=== PATIENT | male | born 1965 | race Caucasian/White ===

== ENCOUNTER 2017-03-19 12:38 | Emergency (ER) | payer OTHER ==
[2017-03-19] MEDS ORDERED: methylPREDNISolone SOD SUCCI 125 MG/2 ML VIAL IM STA (13:07)
[2017-03-19] MEDS ORDERED: KETOROLAC 60 MG/2 ML VIAL IM STA (13:07)
--- NOTE | 2017-03-19 13:47 | ED ---
General Adult HPI - General Chief complaint: Back Pain/Injury Stated complaint: Back/Hip/Leg Pain Time Seen by Provider: 03/19/17 12:48 Source: patient, RN notes reviewed Mode of arrival: wheelchair Limitations: no limitations - History of Present Illness Initial comments: Patient's a 52-year-old male significant past medical history for chronic low back pain, who presents emergency room today with a chief complaint of increased pain to the right hip. Patient does admit that he has a ladder in his house when down to his basement. He states he was going up and down multiple times a few days ago. States that 2 days ago and having some irritation to the right hip. States it's worse with certain movements. He states he feels pain in the right groin area times radiates down the leg. Patient states feels different than his chronic back pain. He states he did go to [facility] yesterday and had x-rays obtained. States he was given Valium and [place] for his pain. He states several relief. Patient mitts that the pain is worse with movements of the right hip. He denies any other complaints. Denies Bowel bladder incontinence retention. Denies any saddle anesthesia. Patient denies any recent fever, chills, shortness of breath, chest pain, abdominal pain, nausea or vomiting, dysuria or hematuria, constipation or diarrhea, headaches or visual changes, or any other complaints. - Related Data Home Medications Medication Instructions Recorded Confirmed Atenolol [Tenormin] 25 mg PO DAILY 06/05/15 03/19/17 Ibuprofen [Motrin] 600 mg PO Q6H PRN 06/05/15 03/19/17 Diazepam [Diazepam] 5 mg PO HS 10/05/15 03/19/17 Hydrocodone/Acetaminophen 1 tab PO Q6H PRN 10/05/15 03/19/17 [Hydrocodon-Acetaminophen 5-325] Previous Rx's Medication Instructions Recorded Dexamethasone 0.75 mg PO DIRECTED #12 tablet 03/19/17 Allergies Allergy/AdvReac Type Severity Reaction Status Date / Time codeine Allergy Rash/Hives Verified 03/19/17 13:10 Penicillins Allergy Rash/Hives Verified 03/19/17 13:10 venom-honey bee Allergy Swelling Verified 03/19/17 13:10 [bee venom (honey bee)] Review of Systems ROS Statement: Those systems with pertinent positive or pertinent negative responses have been documented in the HPI. ROS Other: All systems not noted in ROS Statement are negative. Past Medical History Past Medical History: Atrial Fibrillation Additional Past Medical History / Comment(s): Chronic back pain with radiation down bilateral legs at times. History of arrhythmia and atrial fibrillation and has a cardiac pacemaker different later intact History of Any Multi-Drug Resistant Organisms: None Reported Past Surgical History: Back Surgery, EPS, Pacemaker Additional Past Surgical History / Comment(s): Cervical and lumbar fusions, pericardial window 06/2007, permanent pacer placement 1994, permanent pacer pocket revision 2004, replacement permanent pacer 01/2015, pain clinic procedures for back pain (injections), L hand surgery with pin in little finger. Past Anesthesia/Blood Transfusion Reactions: Motion Sickness Type of Cardiac Device: Permanent Pacemaker Device Placement Date:: 1994-[facility] [place] JAN 2015- [employer] Past Psychological History: No Psychological Hx Reported Smoking Status: Current every day smoker Past Alcohol Use History: Occasional Past Drug Use History: None Reported - Past Family History Father Family Medical History: Coronary Artery Disease (CAD) Additional Family Medical History / Comment(s): Father has had CABG twice, stents and a pacer. Mother Family Medical History: No Reported History General Exam - General Exam Comments Initial Comments: General: The patient is awake and alert, in no distress, and does not appear acutely ill. Eye: Pupils are equal, round and reactive to light, extra-ocular movements are intact. No nystagmus. There is normal conjunctiva bilaterally. No signs of icterus. Ears, nose, mouth and throat: There are moist mucous membranes and no oral lesions. Neck: The neck is supple, there is no tenderness or JVD. Cardiovascular: There is a regular rate and rhythm. No murmur, rub or gallop is appreciated. Respiratory: Lungs are clear to auscultation, respirations are non-labored, breath sounds are equal. No wheezes, stridor, rales, or rhonchi. Gastrointestinal: Soft, non-distended, non-tender abdomen without masses or organomegaly noted. There is no rebound or guarding present. No CVA tenderness. Musculoskeletal: Patient has normal appearance of thoracic lumbar spine with no step-off deformity. There is no tenderness midline. Patient does have a normal appearance the right hip. Shows limited range of motion due to pain. Does have tenderness with a logroll maneuver. Tender on palpation to the heel aspect of the right hip. Sensation intact. Pulses equal bilaterally 2+. Neurological: A&O x 3. CN II-XII intact, There are no obvious motor or sensory deficits. Coordination appears grossly intact. Speech is normal. Skin: Skin is warm and dry and no rashes or lesions are noted. Psychiatric: Cooperative, appropriate mood & affect, normal judgment. Limitations: no limitations Course Vital Signs 03/19/17 12:43 Temperature 96.9 F L Pulse Rate 66 Respiratory 18 Rate Blood Pressure 131/73 O2 Sat by Pulse 100 Oximetry Medical Decision Making - Medical Decision Making Patient reexamined at this time shows no signs of distress. He doesn't feeling better here in emergency room after pain medication. Patient did have x-rays obtained yesterday at [facility]. At this time is no reason to repeat as was no injury or trauma. Patient does have pain right hip area worse with a long maneuver. Does have a history of chronic low back pain. Has seen Dr. Oates in the past but is advised follow-up with orthopedics tomorrow. Continue with pain medication will be given prescription for steroids for inflammation. Advised return if any symptoms increase worsen or for any other concerns. Disposition Clinical Impression: Right hip pain Disposition: HOME SELF-CARE Condition: Good Instructions: Hip Pain (ED) Additional Instructions: Please use medication as discussed. Please follow-up with orthopedics in the next 2 days. Please return to emergency room if the symptoms increase or worsen or for any other concerns. Prescriptions: Dexamethasone 0.75 mg PO DIRECTED #12 tablet Referrals: Fabrice Hernández DO [Primary Care Provider] - 1-2 days Baljit Oates DO [Doctor of Osteopathic Medicine] - 1-2 days Time of Disposition: 14:06
[2017-03-19] MEDS ORDERED: HYDROmorphone 2 MG/ML 1 ML SYRINGE IM STA (14:04)
[2017-03-19 14:21] VITALS: BP 127/76; PULSE 89; RESP 14; TEMP 97.9
== END 2017-03-19 14:34 | disposition home or self-care (01) ==
LOC: EC 12:38
DX: M25.551 Pain in right hip (principal); M54.5 Low back pain; G89.29 Other chronic pain; F17.200 Nicotine dependence, unspecified, uncomplicated; Z98.1 Arthrodesis status; Z88.5 Allergy status to narcotic agent; Z88.0 Allergy status to penicillin; Z91.030 Bee allergy status; Z79.899 Other long term (current) drug therapy; X50.1XXA Overexertion from prolonged static or awkward postures, initial encounter; Y92.009 Unspecified place in unspecified non-institutional (private) residence as the place of occurrence of the external cause
CPT/HCPCS: 99283; 96372 ×3; J1170; J2930; J1885

== ENCOUNTER → 2017-04-27 | Outpatient (CLI) | payer OTHER ==
[2017-04-27 08:58] LABS: HCT 44.2 % (39.0-53.0); HGB 14.5 gm/dL (13.0-17.5); MCH 31.2 pg (25.0-35.0); MCHC 32.8 g/dL (31.0-37.0); MCV 95.1 fL (80.0-100.0); Mean Platelet Volume 7.9; Platelet Count 136 k/uL (150-450); RBC 4.65 m/uL (4.30-5.90); RDW 12.6 % (11.5-15.5); WBC 3.2 k/uL (3.8-10.6)
[2017-04-27 09:17] LABS: ALT 22 U/L (21-72); AST 19 U/L (17-59); Albumin 4.4 g/dL (3.5-5.0); Alkaline Phosphatase 50 U/L (38-126); Anion Gap 9 mmol/L; Blood Urea Nitrogen 15 mg/dL (9-20); Calcium 9.5 mg/dL (8.4-10.2); Carbon Dioxide 31 mmol/L (22-30); Chloride 100 mmol/L (98-107); Cholesterol 185 mg/dL (<200); Glucose 101 mg/dL (74-99); HDL Cholesterol 81 mg/dL (40-60); LDL Cholesterol,Calculated 89 mg/dL (0-99); Potassium 4.3 mmol/L (3.5-5.1); Sodium 140 mmol/L (137-145); Total Bilirubin 1.3 mg/dL (0.2-1.3); Total Protein 6.9 g/dL (6.3-8.2); Triglycerides 76 mg/dL (<150)
[2017-04-27 09:25] LABS: Appearance,Urine Clear (Clear); Bilirubin,Urine Negative (Negative); Blood,Urine Negative (Negative); Color,Urine Light Yellow; Glucose,Urine (UA) Negative (Negative); Ketones,Urine Negative (Negative); Leukocyte Esterase,Urine Negative (Negative); Nitrite,Urine Negative (Negative); PH, Urine 7.5 (5.0-8.0); Protein,Urine Negative (Negative); Specific Gravity,Urine 1.002 (1.001-1.035); Urobilinogen,Urine <2.0 mg/dL (<2.0)
[2017-04-27 10:23] LABS: Prostate Specific Antigen 0.32 ng/mL (0.00-4.00)
[2017-04-27 20:43] LABS: Hemoglobin A1C 5.1 % (4.0-6.0)
== END | disposition home or self-care (01) ==
LOC: LABWHC1 08:35
PROVIDERS: ATTEND Family Medicine
DX: Z00.00 Encounter for general adult medical examination without abnormal findings (principal)
CPT/HCPCS: 36415; 80053; 80061; 81003; 83036; 84153; 84443; 85027; 86803

== ENCOUNTER → 2017-05-04 | Outpatient (CLI) | payer OTHER ==
[2017-05-04 09:13] LABS: Basophils % (A) 1 %; Eosinophils # (A) 0.1 k/uL (0-0.7); Eosinophils % (A) 3 %; HCT 42.1 % (39.0-53.0); HGB 13.7 gm/dL (13.0-17.5); Lymphocytes % (A) 31 %; MCH 29.2 pg (25.0-35.0); MCHC 32.5 g/dL (31.0-37.0); Mean Platelet Volume 8.1; Monocytes # (A) 0.3 k/uL (0-1.0); Monocytes % (A) 10 %; Neutrophils # (A) 1.7 k/uL (1.3-7.7); Neutrophils % (A) 51 %; Platelet Count 162 k/uL (150-450); RBC 4.68 m/uL (4.30-5.90); RDW 12.5 % (11.5-15.5); WBC 3.3 k/uL (3.8-10.6)
[2017-05-04 09:48] LABS: MCV 89.8 fL (80.0-100.0)
== END | disposition home or self-care (01) ==
LOC: LABWHC1 08:28
PROVIDERS: ATTEND Family Medicine
DX: R89.9 Unspecified abnormal finding in specimens from other organs, systems and tissues (principal)
CPT/HCPCS: 36415; 85025

== ENCOUNTER → 2017-05-10 | Outpatient (CLI) | payer OTHER ==
[2017-05-10 14:56] LABS: Basophils % (A) 1 %; Eosinophils # (A) 0.1 k/uL (0-0.7); Eosinophils % (A) 2 %; HCT 41.4 % (39.0-53.0); HGB 14.5 gm/dL (13.0-17.5); Lymphocytes % (A) 27 %; MCH 31.1 pg (25.0-35.0); MCV 88.9 fL (80.0-100.0); Mean Platelet Volume 7.9; Monocytes # (A) 0.3 k/uL (0-1.0); Monocytes % (A) 7 %; Neutrophils # (A) 2.4 k/uL (1.3-7.7); Neutrophils % (A) 61 %; Platelet Count 169 k/uL (150-450); RBC 4.66 m/uL (4.30-5.90); RDW 12.6 % (11.5-15.5); WBC 3.9 k/uL (3.8-10.6)
== END | disposition home or self-care (01) ==
LOC: LABWHC1 14:17
PROVIDERS: ATTEND Family Medicine
DX: R89.9 Unspecified abnormal finding in specimens from other organs, systems and tissues (principal)
CPT/HCPCS: 36415; 85025

== ENCOUNTER → 2017-05-16 | Day surgery (SDC) | payer OTHER ==
[2017-05-12 11:28] VITALS: BMI 21.2
[~2017-05-16] MED LIST: LACTATED RINGERS 1,000 ML IV ONE; LACTATED RINGERS 1,000 ML IV SCH; LIDOCAINE 1% 20 ML VIAL (10MG/ML) FOR IV START INTRADERMA PRN; PROPOFOL 10 MG/ML 20 ML VIAL IV ONE
[2017-05-16 11:25] VITALS: TEMP 97.7
[2017-05-16 12:30] VITALS: RESP 18
--- NOTE | 2017-05-16 12:30 | P.PCN ---
Date of Procedure: 05/16/17 Procedure(s) Performed: Procedure: Total colonoscopy. Preoperative diagnosis: Screening for neoplasia. Postoperative diagnosis: Exam within normal limits. Preparation: HalfLytely prep. Sedation: Was provided by anesthesia. Brief clinical history: The patient is a 52-year-old male who is referred for this evaluation for screening for neoplasia age being his risk factor. He has no family history of colon cancer. The patient has no abdominal complaints, bleeding or anemia. This would be his first colonoscopy. Procedure: With the patient on his left lateral decubitus position and after informed consent and adequate sedation, the perianal area was inspected and it did not show any fissures or fistulas. There were no masses felt on digital rectal examination. The Olympus CFQ 160L video colonoscope was then inserted in the rectum in the usual fashion and advanced to the cecum. The mucosa appeared healthy. No polyps or tumors were seen or any obvious diverticular disease or other pathology. I retroflexed the endoscope in the rectum before the endoscope was withdrawn. The patient tolerated the procedure well. Plan: The patient was reassured. He will follow up with you as planned and I recommended repeat exam in 10 years.
[2017-05-16 12:47] VITALS: BP 122/74; PULSE 72
== END | disposition home or self-care (01) ==
LOC: ORWHC2ENDO 10:47
DX: Z12.11 Encounter for screening for malignant neoplasm of colon (principal); I10 Essential (primary) hypertension; I48.91 Unspecified atrial fibrillation; Z88.0 Allergy status to penicillin; Z91.030 Bee allergy status; Z88.5 Allergy status to narcotic agent; Z79.1 Long term (current) use of non-steroidal anti-inflammatories (NSAID); Z79.899 Other long term (current) drug therapy; Z95.0 Presence of cardiac pacemaker
CPT/HCPCS: G0121; J2704

== ENCOUNTER → 2017-06-05 | Outpatient (CLI) | payer OTHER ==
--- NOTE | 2017-06-06 15:56 | CT ---
EXAMINATION TYPE: CT lumbar spine w con DATE OF EXAM: 06/05/2017 COMPARISON: 12/29/2015 HISTORY: Low back pain. History of lumbar surgeries. CT DLP: 1009 mGycm Automated exposure control for dose reduction was used. CONTRAST: CT scan of the lumbar is performed with IV Contrast, patient injected with 100 mL of Isovue M300. Enhanced CT of the lumbar spine was performed. Bone and soft tissue window settings are submitted as well as coronal and sagittal reconstructions. FINDINGS: The lumbar spine maintains normal vertebral body heights and alignment. Sclerotic lesions o f the iliac bones are unchanged from the prior of 2015 and favored to represent benign etiologies. Tr ansverse processes of the interspinous processes are intact. The patient reports a history of lumbar surgery. No metallic postsurgical hardware is seen. Limited visualized portions of the abdomen are gr ossly unremarkable. L1-L2: Normal disc space height. No disc herniation protrusion or central stenosis. No facet joint arthropathy. No evidence for foraminal encroachment. L2-L3: There is a small broad-based disc bulge resulting in mild bilateral neural foraminal narrowing and mild spinal canal stenosis. Arthropathy is also again seen. L3-L4: There is a right eccentric disc bulge creating at least moderate right neural foraminal narrow ing and mild to moderate left neural foraminal narrowing with moderate spinal canal stenosis. Facet a rthropathy is also again seen at this level. L4-L5: There appears to be interval surgical removal of the previously seen right large paracentral d isc herniation. A broad-based disc bulge remains that is right eccentric resulting in moderate right neural foraminal narrowing and moderate left neural foraminal narrowing in combination with facet art hropathy. There is also moderate spinal canal stenosis at this level. L5-S1: Small broad-based disc bulge is seen resulting in minimal bilateral neural foraminal narrowing . No spinal canal stenosis. IMPRESSION: 1. Apparent surgical removal of the previously seen large right paracentral disc herniation. Based di sc bulge and facet arthropathy remain resulting in bilateral moderate neural foraminal narrowing and moderate spinal canal stenosis. 2. Moderate multilevel degenerative disc disease contributing to mild spinal canal stenosis at L2-L3 and moderate spinal canal stenosis from L3 through L5 with multilevel variable neural foraminal steno sis as described above.
== END | disposition home or self-care (01) ==
LOC: RADCTMAIN 16:16
PROVIDERS: ATTEND Psychiatry & Neurology Neurology
DX: M48.061 Spinal stenosis, lumbar region without neurogenic claudication (principal); M99.73 Connective tissue and disc stenosis of intervertebral foramina of lumbar region; M51.26 Other intervertebral disc displacement, lumbar region; M51.36 Other intervertebral disc degeneration, lumbar region; M46.86 Other specified inflammatory spondylopathies, lumbar region
CPT/HCPCS: 72132; Q9967

== ENCOUNTER 2017-09-25 12:35 | Emergency (ER) | payer OTHER ==
[2017-09-25] MEDS ORDERED: diphenhydrAMINE 50 MG/ML 1 ML VIAL IVP STA (13:18)
[2017-09-25] MEDS ORDERED: SODIUM CHLORIDE 0.9% 1,000 ML IV ONE (13:18)
[2017-09-25] MEDS ORDERED: METOCLOPRAMIDE 5 MG/ML 2 ML VIAL IVP STA (13:18)
--- NOTE | 2017-09-25 13:21 | ED ---
Headache HPI - General Chief Complaint: Headache Stated Complaint: Headache Time Seen by Provider: 09/25/17 13:07 Mode of arrival: ambulatory Limitations: no limitations - History of Present Illness Initial Comments: This is a 52-year-old male with a history of atrial fibrillation currently in sinus rhythm with a pacemaker who presents emergency department for headache for 3 weeks. The patient states that it seems to wax and wane in intensity. It seemed to resolve about one week ago however then returned. He describes it as bifrontal and radiating bilaterally at around to the posterior aspect of his head. He states it does not radiate into his neck. He states that when the headache is at its worst he has some blurred vision. He states that it seems to be made worse when he is bending down. He states it seems to be a little bit improved when he is laying supine. He denies any focal weakness or numbness that is new for him. Denies any significant nausea or vomiting. States that he has not seen his physician for this. He is on 800 Motrin daily for chronic back pain which has not relieved his symptoms. He states that he is on gabapentin as well and had the dose increased 4 months ago however has not had any issues with this medication and his PCP told him that he did not feel that this was the cause. He denies any other acute complaints. - Related Data Home Medications Medication Instructions Recorded Confirmed Gabapentin [Neurontin] 300 mg PO HS 09/25/17 09/25/17 HYDROcodone/APAP 7.5-325MG [[place]us 0.5 - 2 tab PO BID PRN 09/25/17 09/25/17 7.5-325] Ibuprofen [Motrin] 800 mg PO Q8H PRN 09/25/17 09/25/17 Previous Rx's Medication Instructions Recorded Butalb/Acetaminophen/Caffeine 1 - 2 cap PO Q4HR PRN #10 cap 09/25/17 [Fioricet 50-300-40 mg Capsule] Allergies Allergy/AdvReac Type Severity Reaction Status Date / Time codeine Allergy Rash/Hives Verified 09/25/17 12:57 Penicillins Allergy Rash/Hives Verified 09/25/17 12:57 venom-honey bee Allergy Swelling Verified 09/25/17 12:57 [bee venom (honey bee)] Review of Systems ROS Statement: Those systems with pertinent positive or pertinent negative responses have been documented in the HPI. ROS Other: All systems not noted in ROS Statement are negative. Past Medical History Past Medical History: Atrial Fibrillation Additional Past Medical History / Comment(s): Chronic back pain with radiation down bilateral legs at times. History of arrhythmia and atrial fibrillation and has a cardiac pacemaker different later intact History of Any Multi-Drug Resistant Organisms: None Reported Past Surgical History: Back Surgery, EPS, Pacemaker Additional Past Surgical History / Comment(s): Cervical and lumbar fusions, pericardial window 06/2007, permanent pacer placement 1994, permanent pacer pocket revision 2004, replacement permanent pacer 01/2015, pain clinic procedures for back pain (injections), L hand surgery with pin in little finger. Past Anesthesia/Blood Transfusion Reactions: Motion Sickness Type of Cardiac Device: Permanent Pacemaker Device Placement Date:: 1994-[facility] IN JAN 2015- [employer] Past Psychological History: No Psychological Hx Reported Smoking Status: Current every day smoker Past Alcohol Use History: Occasional Past Drug Use History: None Reported - Past Family History Father Family Medical History: Coronary Artery Disease (CAD) Additional Family Medical History / Comment(s): Father has had CABG twice, stents and a pacer. Mother Family Medical History: No Reported History General Exam - General Exam Comments Initial Comments: Constitutional: Awake alert Appears comfortable Head: Normocephalic atraumatic Eyes: no conjunctival injection No scleral icterus EOMI, pupils are 4 mm and reactive bilaterally Neck: No JVD Supple Heart: Regular rate rhythm normal S1-S2 no murmurs Lungs: Clear to auscultation bilaterally No wheezing No rales Abdomen: Soft nondistended nontender Extremities: Non edematous DP pulses intact Radial pulses intact Neuro: A&Ox3, cranial nerves II through XII are grossly intact, 5 out of 5 strength in upper and lower [place] bilaterally, sensation intact to light touch in all extremities, normal finger to nose testing without ataxia No focal neurologic deficits Psych: Appropriate mood and affect Limitations: no limitations Course Vital Signs 09/25/17 12:50 Temperature 98.1 F Pulse Rate 59 L Respiratory 18 Rate Blood Pressure 144/84 O2 Sat by Pulse 99 Oximetry Medical Decision Making - Medical Decision Making This is a 52-year-old male who presents emergency department for headache 3 weeks. He described as a bandlike headache. CT of the head was unremarkable. Blood work unremarkable. The patient was improved after IV fluids, Reglan, and Benadryl. He stated that his headache was down to 1 out of 10. At this time I suspect that he likely has a tension type etiology for his headaches however needs close follow-up with his primary doctor and also was given neurology. Told to return if he has worsening or changing symptoms. All questions were answered. - Lab Data Result diagrams: 09/25/17 13:30 09/25/17 13:30 Lab Results 09/25/17 09/25/17 Range/Units 13:30 13:30 WBC 3.1 L (3.8-10.6) k/uL RBC 4.48 (4.30-5.90) m/uL Hgb 13.8 (13.0-17.5) gm/dL Hct 40.0 (39.0-53.0) % MCV 89.3 (80.0-100.0) fL MCH 30.8 (25.0-35.0) pg MCHC 34.5 (31.0-37.0) g/dL RDW 12.4 (11.5-15.5) % Plt Count 149 L (150-450) k/uL Neutrophils % 60 % Lymphocytes % 26 % Monocytes % 9 % Eosinophils % 1 % Basophils % 1 % Neutrophils # 1.9 (1.3-7.7) k/uL Lymphocytes # 0.8 L (1.0-4.8) k/uL Monocytes # 0.3 (0-1.0) k/uL Eosinophils # 0.0 (0-0.7) k/uL Basophils # 0.0 (0-0.2) k/uL Sodium 140 (137-145) mmol/L Potassium 4.2 (3.5-5.1) mmol/L Chloride 108 H (98-107) mmol/L Carbon Dioxide 28 (22-30) mmol/L Anion Gap 4 mmol/L BUN 14 (9-20) mg/dL Creatinine 0.81 (0.66-1.25) mg/dL Est GFR (CKD-EPI)AfAm >90 (>60 ml/min/1.73 sqM) Est GFR (CKD-EPI)NonAf >90 (>60 ml/min/1.73 sqM) Glucose 93 (74-99) mg/dL Calcium 9.0 (8.4-10.2) mg/dL Disposition Clinical Impression: Headache Disposition: HOME SELF-CARE Condition: Stable Instructions: Acute Headache (ED) Prescriptions: Butalb/Acetaminophen/Caffeine [Fioricet 50-300-40 mg Capsule] 1 - 2 cap PO Q4HR PRN #10 cap PRN Reason: Headache Is patient prescribed a controlled substance at d/c from ED?: No Referrals: Fabrice Hernández DO [Primary Care Provider] - 1-2 days Karli Diallo MD [STAFF PHYSICIAN] - 1-2 days
[2017-09-25 13:59] LABS: Basophils % (A) 1 %; Eosinophils % (A) 1 %; HGB 13.8 gm/dL (13.0-17.5); Lymphocytes # (A) 0.8 k/uL (1.0-4.8); Lymphocytes % (A) 26 %; MCH 30.8 pg (25.0-35.0); MCHC 34.5 g/dL (31.0-37.0); MCV 89.3 fL (80.0-100.0); Mean Platelet Volume 7.9; Monocytes # (A) 0.3 k/uL (0-1.0); Monocytes % (A) 9 %; Neutrophils # (A) 1.9 k/uL (1.3-7.7); Neutrophils % (A) 60 %; Platelet Count 149 k/uL (150-450); RBC 4.48 m/uL (4.30-5.90); RDW 12.4 % (11.5-15.5); WBC 3.1 k/uL (3.8-10.6)
[2017-09-25 14:03] LABS: Anion Gap 4 mmol/L; Blood Urea Nitrogen 14 mg/dL (9-20); Carbon Dioxide 28 mmol/L (22-30); Chloride 108 mmol/L (98-107); Glucose 93 mg/dL (74-99); Potassium 4.2 mmol/L (3.5-5.1); Sodium 140 mmol/L (137-145)
--- NOTE | 2017-09-25 15:00 | CT ---
EXAMINATION TYPE: CT brain wo con DATE OF EXAM: 09/25/2017 COMPARISON: None HISTORY: 52-year-old male Headache for 3 weeks TECHNIQUE: Examination was done in axial plane without intravenous contrast. Coronal and sagittal r econstructions performed. CT DLP: 1266 mGycm Automated exposure control for dose reduction was used. FINDINGS: There is no evidence of acute intracranial hemorrhage, acute ischemic changes, mass, mass-effect, or extra-axial fluid collection. There is no effacement of cerebral sulci or basal subarachnoid cister ns. There is no hydrocephalus. There is no midline shift. Mendez-white matter distinction is preserv ed. Paranasal sinuses and mastoid air cells well pneumatized. Orbits and globes are intact. IMPRESSION: No acute intracranial abnormality seen.
[2017-09-25 15:36] VITALS: BP 124/83; PULSE 51; RESP 16; TEMP 98
== END 2017-09-25 15:35 | disposition home or self-care (01) ==
LOC: EC 12:35
DX: R51 Headache (principal); H53.8 Other visual disturbances; I48.91 Unspecified atrial fibrillation; F17.200 Nicotine dependence, unspecified, uncomplicated; Z79.899 Other long term (current) drug therapy; Z88.0 Allergy status to penicillin; Z88.5 Allergy status to narcotic agent; Z91.030 Bee allergy status; Z95.0 Presence of cardiac pacemaker
CPT/HCPCS: 36415; 80048; 85025; 70450; 99284; 96374; 96375; 96361; J1200; J2765

== ENCOUNTER → 2017-10-03 | Outpatient (CLI) | payer OTHER ==
[2017-10-03 16:55] LABS: Basophils % (A) 1 %; Eosinophils # (A) 0.1 k/uL (0-0.7); Eosinophils % (A) 1 %; HCT 39.4 % (39.0-53.0); HGB 13.1 gm/dL (13.0-17.5); Lymphocytes # (A) 0.9 k/uL (1.0-4.8); Lymphocytes % (A) 21 %; MCH 29.7 pg (25.0-35.0); MCHC 33.4 g/dL (31.0-37.0); MCV 89.2 fL (80.0-100.0); Mean Platelet Volume 7.9; Monocytes # (A) 0.3 k/uL (0-1.0); Monocytes % (A) 7 %; Neutrophils # (A) 2.8 k/uL (1.3-7.7); Neutrophils % (A) 68 %; Platelet Count 141 k/uL (150-450); RBC 4.42 m/uL (4.30-5.90); RDW 12.1 % (11.5-15.5); WBC 4.1 k/uL (3.8-10.6)
== END | disposition home or self-care (01) ==
LOC: LABWHC1 15:56
PROVIDERS: ATTEND Family Medicine
DX: Z00.00 Encounter for general adult medical examination without abnormal findings (principal)
CPT/HCPCS: 36415; 85025

== ENCOUNTER → 2018-07-13 | Day surgery (SDC) | payer OTHER ==
[~2018-07-13] MED LIST changes: +DIAZEPAM 5 MG TAB PO STA; -LACTATED RINGERS 1,000 ML IV ONE; -LACTATED RINGERS 1,000 ML IV SCH; -LIDOCAINE 1% 20 ML VIAL (10MG/ML) FOR IV START INTRADERMA PRN; +PREMYELOGRAM MEDICATION REVIEW 1 EACH MISC PO NR; -PROPOFOL 10 MG/ML 20 ML VIAL IV ONE
[2018-07-13 10:01] VITALS: RESP 18
--- NOTE | 2018-07-13 10:15 | CT ---
EXAMINATION TYPE: CT lumbar spine wo con DATE OF EXAM: 07/13/2018 10:03 AM COMPARISON: Prior CT lumbar spine June 05, 2017. HISTORY: Spondylolisthesis per order. Patient has history of 2 prior back surgeries most recent 2016 with persistent pain and right-sided weakness CT DLP: 999 mGycm Automated exposure control for dose reduction was used. CT of the lumbar spine was performed after intrathecal injection. That report is dictated separately . Bone and soft tissue window settings are submitted as well as coronal and sagittal reconstructions. 5 lumbar-type vertebra are redemonstrated. There is mild disc space narrowing L3-L4 and L5-S1 levels redemonstrated. Vertebral body heights are maintained. Posterior disc herniation noted L4-L5 level on sagittal images. The conus medullaris terminates at mid L1 level. Lumbosacral nerve roots show no eduardo spicious clumping. Mild to minimal multilevel anterior spurring is redemonstrated. Axial images show the T12-L1 level to appear within normal limits. L1-L2: Normal disc space height. No disc herniation protrusion or central stenosis. No facet joint arthropathy. No evidence for foraminal encroachment. L2-L3: Redemonstration of mild broad disc bulge mildly effacing anterior thecal sac on image 34 and c ausing mild bilateral anterior inferior neural foraminal narrowing. No significant change from prior. L3-L4: Redemonstration moderate broad disc bulge with slightly more prominent right foraminal disc pr otrusion component axial image 47. There is effacement of the anterior thecal sac. Mild bilateral fac et degenerative changes are redemonstrated. There is moderate right and mild/moderate left-sided ante rior inferior neural foraminal narrowing. No significant change from prior. L4-L5: Mild to moderate facet degenerative changes bilaterally. There is persistent moderate to sever e broad based posterior disc protrusion with effacement of the anterior thecal sac. There is persiste nt moderate bilateral neural foraminal narrowing. No significant change from prior. L5-S1: Mild to moderate facet degenerative changes bilaterally. Tiny central disc protrusion but spin al canal is preserved. Bilateral neural foramina show mild anterior inferior neural foraminal narrowi ng. No significant change from prior. There are 4 small calculi scattered throughout left kidney measuring up to 3 mm in size and too small calculi lower pole level right kidney measuring under 3 mm in size now identified. Low-lying cecum i nto right pelvis is partially imaged. IMPRESSION: Multilevel degenerative changes most prominent L3-L4 and L4-L5 level as detailed above. N o significant progression from prior CT. Better visualization of disc herniations current study due t o successful myelogram. Small bilateral nephrolithiasis redemonstrated with increased number of calcu li suspected since prior CT.
[2018-07-13 11:46] VITALS: BP 119/62; PULSE 56
--- NOTE | 2018-07-13 12:21 | FL ---
EXAMINATION TYPE: FL myelogram lumbosacral DATE OF EXAM: 07/13/2018 COMPARISON: Prior CT lumbar spine June 05, 2017 HISTORY: History of low back surgery and pacemaker with persistent back pain. Technique: Fluoroscopic assisted myelogram. A total of 1 minute 7 seconds of fluoroscopic time was ut ilized. 5 spot images are saved to PACS. Informed consent was obtained and all the patient's questions were answered. The L3-L4 level was loc alized under fluoroscopy using paraspinal approach. Standard sterile technique was utilized as well as appropriate local anesthesia 1% Lidocaine. Spinal needle was introduced into the thecal sac under fluoroscopic guidance and 13 mL's of Isovue-M 200 wa s injected. The patient tolerated the procedure well and remained in the hospital in stable condition for short s valencia after procedure. CT myelography is to follow. This report will be dictated separately. Patient was discharged in stable condition. 5 images are saved which shows successful opacification of the th ecal canal at level of lumbar spine. IMPRESSION: Successful myelography lumbar spine.
== END | disposition home or self-care (01) ==
LOC: RADPROMAIN 08:00
PROVIDERS: ATTEND Neurological Surgery
DX: M43.16 Spondylolisthesis, lumbar region (principal); M48.062 Spinal stenosis, lumbar region with neurogenic claudication; Z98.890 Other specified postprocedural states; I48.91 Unspecified atrial fibrillation; Z95.0 Presence of cardiac pacemaker; Z98.1 Arthrodesis status; M51.37 Other intervertebral disc degeneration, lumbosacral region; M51.36 Other intervertebral disc degeneration, lumbar region
CPT/HCPCS: 62304; 72131; Q9966

== ENCOUNTER → 2019-01-09 | Outpatient (CLI) | payer OTHER ==
--- NOTE | 2019-01-09 17:04 | XR ---
EXAMINATION TYPE: XR chest 2V DATE OF EXAM: 01/09/2019 COMPARISON: 12/30/2015 HISTORY: Shortness of breath TECHNIQUE: Frontal and lateral views of the chest are obtained. FINDINGS: Scattered senescent parenchymal changes noted. Hyperinflation compatible with COPD. No evidence for infiltrate. No evidence for atelectasis. Heart size is stable. Mediastinal structures are stable and grossly unremarkable. No evidence for hilar prominence. Degenerative changes dorsal spine. IMPRESSION: 1. No evidence for acute pulmonary disease.
[2019-01-09 17:06] LABS: Appearance,Urine Clear (Clear); Bilirubin,Urine Negative (Negative); Blood,Urine Negative (Negative); Color,Urine Yellow; Glucose,Urine (UA) Negative (Negative); Ketones,Urine Negative (Negative); Leukocyte Esterase,Urine Negative (Negative); Nitrite,Urine Negative (Negative); Protein,Urine Negative (Negative); Specific Gravity,Urine 1.015 (1.001-1.035)
[2019-01-09 17:12] LABS: Partial Thromboplastin Time 24.6 sec (22.0-30.0); Prothrombin Time 10.4 sec (9.0-12.0)
[2019-01-09 19:12] LABS: Basophils % (A) 1 %; Eosinophils # (A) 0.1 k/uL (0-0.7); Eosinophils % (A) 2 %; HCT 41.4 % (39.0-53.0); HGB 14.5 gm/dL (13.0-17.5); Lymphocytes # (A) 0.9 k/uL (1.0-4.8); Lymphocytes % (A) 26 %; MCH 32.4 pg (25.0-35.0); MCHC 35.1 g/dL (31.0-37.0); MCV 92.3 fL (80.0-100.0); Mean Platelet Volume 7.1; Monocytes # (A) 0.3 k/uL (0-1.0); Monocytes % (A) 8 %; Neutrophils # (A) 2.2 k/uL (1.3-7.7); Neutrophils % (A) 61 %; Platelet Count 182 k/uL (150-450); RBC 4.48 m/uL (4.30-5.90); RDW 12.3 % (11.5-15.5); WBC 3.6 k/uL (3.8-10.6)
[2019-01-10 01:04] LABS: African American GFR (CKD) 99.8 (60.0-200.0); Albumin 4.6 g/dL (3.80-4.90); Albumin/Globulin Ratio 2.56 (1.60-3.17); Anion Gap 9.5 mmol/L (4.00-12.00); Carbon Dioxide 25.5 mmol/L (21.6-31.8); Globulin 1.8 g/dL (1.6-3.3); Potassium 4.4 mmol/L (3.5-5.5); Total Bilirubin 0.4 mg/dL (0.3-1.2); Total Protein 6.4 g/dL (6.2-8.2)
== END | disposition home or self-care (01) ==
LOC: LABWHC1 16:08
PROVIDERS: ATTEND Neurological Surgery
DX: Z01.818 Encounter for other preprocedural examination (principal); Z01.812 Encounter for preprocedural laboratory examination; M48.062 Spinal stenosis, lumbar region with neurogenic claudication; M43.16 Spondylolisthesis, lumbar region
CPT/HCPCS: 36415; 71046; 80053; 81003; 85025; 85610; 85730; 86850; 87070

== ENCOUNTER → 2022-07-14 | Outpatient (CLI) | payer OTHER ==
--- NOTE | 2022-07-14 14:11 | P.SLEEP ---
History of Present Illness DATE: 07/14/2022 CONSULTATION/NEW PATIENT EVALUATION HISTORY OF PRESENT ILLNESS/SLEEP-WAKE EVALUATION: 57-year-old gentleman had been evaluated in the sleep center for possible obstructive sleep apnea hypopnea syndrome. SLEEP SCHEDULE: Usually sleep schedule from 10 PM to 4:30 AM on weekdays and from midnight to 6:30 AM on weekend. FALLING ASLEEP: No problems with falling asleep, although patient has TV set and bedroom. DURING SLEEP: Patient snores, wakes up from sleep 3 times with nocturia and has positive history of twitching during the night and episodes of gasping for air. No history of hypnogogical hallucinations, sleep paralysis, or cataplexy. DURING THE DAY/WAKE STATE: In the morning patient wake up tired, falling asleep during the day. [place] sleepiness scale is 11, which indicates sleepiness. Patient takes 1 nap around 7 PM. PAST MEDICAL HISTORY: Arthral fibrillation, back problems, low legs neuropathy. PAST SURGICAL HISTORY:. Metformin pacemaker insertion, back surgery, neck surgery. MEDICATIONS: Gabapentin 600 mg once a day, [place], metoprolol 25 mg once a day. SOCIAL HISTORY: Positive history of smoking pipe for about 20 years, alcohol consumption occasional. FAMILY HISTORY: Positive for prostate cancer. REVIEW OF SYSTEMS: Snoring, awakenings from gasping for air, sleepiness. No fevers. No double vision. No recent chest pain. No shortness of breath. No abdominal pain. No bleeding episodes. No blood in urine. No seizure episodes. PHYSICAL EXAMINATION: GENERAL: A pleasant patient without any distress. VITAL SIGNS: BP 137/78, HR 59, RR 16, weight 180.0 pounds, height 6 foot 4.5 inches, body mass index 21.6. HEENT: PERRLA, EOMI. Evaluation of oropharynx showed tongue protrudes midline, low position of soft palate Mallampati 4. NECK: Supple. No JVD. Thyroid is not palpable. 15.25 inches in circumference. LUNGS: Clear to percussion and to auscultation. Good air exchange. No wheezing or rhonchi. HEART: S1, S2 regular. No murmurs, gallops or rubs. ABDOMEN: Soft and nontender. Bowel sounds are present. No organomegaly appreciated. EXTREMITIES: No clubbing or cyanosis. LPC: Awake, alert, and oriented x3. Cranial nerves 2 to 7 intact. There is no fasciculation or atrophy noted. No focal deficits observed. ASSESSMENT: 1. Snoring, awakenings from sleep with gasping for air, extremely low position of soft palate, sleepiness [place] Sleepiness Scale increased to 11. Obstructive sleep apnea hypopnea syndrome. 2. History of atrial fibrillation. 3. Status post permanent pacemaker insertion. 4. Lower leg neuropathy. 5 twitching movements during the sleep possibly periodic limb movements. 6 . Back problems. Status post back surgery. 7. Status post neck surgery. PLAN: 1. Polysomnography for evaluation of patient's breathing during sleep. 2. CPAP/BiPAP titration if sleep study confirms obstructive sleep apnea- hypopnea syndrome. 3. Preferable position during sleep on the side. 4. No driving if patient feels any sleepiness. Patient is aware of civil and criminal liability for unsafe driving. 5. Sleep hygiene with regular sleep time for at least 7.5-8 hours. 6. Watching weight. Thank you very much for referring this patient for consultation. Sincerely, Roger Rodriguez MD, PhD, FAASM. Diplomat of [place] [employer], Sleep Medicine Board by [place] [employer] [place] [employer] [facility] [place] Past Medical History Past Medical History: Atrial Fibrillation Additional Past Medical History / Comment(s): Chronic back pain with radiation down bilateral legs at times. History of arrhythmia and atrial fibrillation and has a cardiac pacemaker different later intact History of Any Multi-Drug Resistant Organisms: None Reported Past Surgical History: Back Surgery, EPS, Pacemaker Additional Past Surgical History / Comment(s): Cervical and lumbar fusions, pericardial window 06/2007, permanent pacer placement 1994, permanent pacer pocket revision 2004, replacement permanent pacer 01/2015, pain clinic procedures for back pain (injections), L hand surgery with pin in little finger. Past Anesthesia/Blood Transfusion Reactions: Motion Sickness Type of Cardiac Device: Permanent Pacemaker Device Placement Date:: 1994-[facility] [place] 2015- [email or web address] Past Psychological History: No Psychological Hx Reported Additional Psychological History / Comment(s): Pt resides with his spouse and 9 year old son. He is normally independent. Past Alcohol Use History: Occasional Additional Past Alcohol Use History / Comment(s): smokes a pipe daily since 2000 Past Drug Use History: None Reported - Past Family History Father Family Medical History: Coronary Artery Disease (CAD) Additional Family Medical History / Comment(s): Father has had CABG twice, stents and a pacer. Mother Family Medical History: Hypertension Medications and Allergies Home Medications Medication Instructions Recorded Confirmed Type Butalb/Acetaminophen/Caffeine 1 - 2 cap PO Q4HR PRN #10 cap 09/25/17 07/13/18 Rx [Fioricet 50-300-40 mg Capsule] Gabapentin [Neurontin] 300 mg PO DAILY 09/25/17 07/13/18 History HYDROcodone/APAP 7.5-325MG [[place] 0.5 - 2 tab PO BID PRN 09/25/17 07/13/18 History 7.5-325] Naproxen [Naprosyn] 500 mg PO Q12HR 07/06/18 07/13/18 History Allergies Allergy/AdvReac Type Severity Reaction Status Date / Time codeine Allergy Rash/Hives Verified 07/13/18 08:34 Penicillins Allergy Rash/Hives Verified 07/13/18 08:34 venom-honey bee Allergy Swelling Verified 07/13/18 08:34 [bee venom (honey bee)] Sleep Note - Sleep Note Sleep Note: Temperature: Pulse Rate: Respiratory Rate: Blood Pressure: SpO2: Height: Weight: BMI: Neck Circumference:
== END | disposition home or self-care (01) ==
LOC: SLEEP 13:36
PROVIDERS: ATTEND Internal Medicine
DX: R06.83 Snoring (principal); G57.80 Other specified mononeuropathies of unspecified lower limb; M54.9 Dorsalgia, unspecified; Z98.890 Other specified postprocedural states; Z95.0 Presence of cardiac pacemaker; Z86.79 Personal history of other diseases of the circulatory system; Z88.0 Allergy status to penicillin; Z88.5 Allergy status to narcotic agent; Z91.030 Bee allergy status; Z82.49 Family history of ischemic heart disease and other diseases of the circulatory system; F17.210 Nicotine dependence, cigarettes, uncomplicated; Z80.42 Family history of malignant neoplasm of prostate
CPT/HCPCS: 99211

== ENCOUNTER → 2024-06-05 | Outpatient (CLI) | payer BC ==
[2024-06-05 10:00] LABS: Partial Thromboplastin Time 23.4 sec (22.0-30.0); Prothrombin Time 10.8 sec (10.0-12.5)
[2024-06-05 10:52] LABS: Creatinine,Urine Random 103.7 mg/dL; Protein/Creatinine Ratio,Urine 0.058
[2024-06-05 14:56] LABS: Basophils # (A) 0.03 X 10*3/uL (0.00-0.10); Basophils % (A) 0.7 %; Eosinophils # (A) 0.09 X 10*3/uL (0.04-0.35); Eosinophils % (A) 2.2 %; HCT 45.5 % (39.6-50.0); HGB 15.4 g/dL (13.0-17.0); Lymphocytes # (A) 1.22 X 10*3/uL (0.90-5.00); Lymphocytes % (A) 29.2 %; MCH 32.7 pg (27.0-32.0); MCHC 33.8 g/dL (32.0-37.0); MCV 96.6 FL (80.0-97.0); Mean Platelet Volume 10.3 FL (9.5-12.2); Monocytes # (A) 0.41 X 10*3/uL (0.20-1.00); Monocytes % (A) 9.8 %; NRBC Per 100 WBC 0 X 10*3/uL (0.00-0.01); Neutrophils # (A) 2.41 X 10*3/uL (1.80-7.70); Neutrophils % (A) 57.6 %; Platelet Count 172 X 10*3/uL (140-440); RBC 4.71 X 10*6/uL (4.40-5.60); RDW 12.1 % (11.5-14.5); WBC 4.18 X 10*3/uL (4.50-10.00)
--- NOTE | 2024-06-05 15:04 | XR ---
EXAMINATION TYPE: XR chest 2V DATE OF EXAM: 06/05/2024 9:43 AM COMPARISON: 01/09/2019 CLINICAL INDICATION: Male, 59 years old with history of J44.9 COPD R06.02 SOB, , TECHNIQUE: Frontal and lateral views FINDINGS: Left anterior chest wall pacemaker generator with right atrial and right ventricular leads. The cardi omediastinal silhouette, aorta, and pulmonary vasculature are within normal limits. Lungs and pleural spaces are clear. ACDF hardware. IMPRESSION: No acute cardiopulmonary process. [facility], Workstation: [id number], 06/05/2024 3:02 PM
[2024-06-05 15:23] LABS: Hepatitis B Core IgM Nonreactive (Nonreactive); Hepatitis B Surface Antigen Nonreactive (Nonreactive); Hepatitis C IgG Antibody Nonreactive (Nonreactive)
[2024-06-05 15:38] LABS: % Iron Saturation 70.95 (15.00-50.00); ALT 33 U/L (10-49); AST 35 U/L (14-35); Albumin 4.5 g/dL (3.8-4.9); Albumin/Globulin Ratio 2.05 Ratio (1.60-3.17); Alkaline Phosphatase 58 U/L (41-126); Appearance,Urine Clear (Clear); BUN/Creat Ratio 17.22 Ratio (12.00-20.00); Bilirubin,Urine Negative (Negative); Blood Urea Nitrogen 15.5 mg/dL (9.0-27.0); Blood,Urine Negative (Negative); C Reactive Protein <0.30 mg/dL (0.00-0.80); Calcium 9.4 mg/dL (8.7-10.3); Carbon Dioxide 29.5 mmol/L (21.6-31.8); Chloride 103 mmol/L (96-109); Chol/HDL Ratio 2.86 Ratio; Color,Urine Yellow (Yellow); Creatine Kinase 334 U/L (35-257); GGT 39 U/L (0-73); Globulin 2.2 g/dL (1.6-3.3); Glucose 107 mg/dL (70-110); Iron 276 UG/DL (65-175); Ketones,Urine Negative (Negative); LDL Cholesterol,Calculated 89.7 mg/dL (0.0-131.0); Magnesium 2.2 mg/dL (1.5-2.4); Nitrite,Urine Negative (Negative); PH, Urine 6.5; Phosphorus 2.6 mg/dL (2.4-5.1); Potassium 4.6 mmol/L (3.5-5.5); Sodium 140 mmol/L (135-145); Specific Gravity,Urine 1.016 (1.001-1.030); Total Bilirubin 0.9 mg/dL (0.3-1.2); Total Iron Binding Capacity 389 UG/DL (228-460); Total Protein 6.7 g/dL (6.2-8.2); Uric Acid 5.7 mg/dL (3.7-8.7); Urobilinogen,Urine 0.2 E.U./DL
[2024-06-05 16:38] LABS: Erythrocyte Sedimentation Rate <1 mm/Hr (0-20)
[2024-06-05 19:44] LABS: Microalbumin Creatinine Ratio <11 mg/g Cr (0-30)
== END | disposition home or self-care (01) ==
LOC: LABWHC1 08:57
PROVIDERS: ATTEND Internal Medicine
DX: Z00.00 Encounter for general adult medical examination without abnormal findings (principal); I10 Essential (primary) hypertension; E55.9 Vitamin D deficiency, unspecified; E03.9 Hypothyroidism, unspecified; E78.5 Hyperlipidemia, unspecified; E87.8 Other disorders of electrolyte and fluid balance, not elsewhere classified; J44.9 Chronic obstructive pulmonary disease, unspecified; D64.9 Anemia, unspecified; D68.59 Other primary thrombophilia; N40.0 Benign prostatic hyperplasia without lower urinary tract symptoms; N39.0 Urinary tract infection, site not specified; N20.0 Calculus of kidney; R80.9 Proteinuria, unspecified; R06.02 Shortness of breath
CPT/HCPCS: 36415; 71046; 80053; 80061; 80074; 81003; 82043; 82306; 82550; 82570; 82728; 82977; 83540; 83550; 83735; 84100; 84153; 84156; 84443; 84550; 85025; 85610; 85652; 85730; 86140; 87086

== ENCOUNTER → 2024-06-06 | Outpatient (CLI) | payer BC, OTHER ==
[2024-06-06 14:46] LABS: Basophils % (A) 0 %; Eosinophils # (A) 0.1 k/uL (0-0.7); Eosinophils % (A) 1 %; HCT 44.7 % (39.0-53.0); HGB 15.3 gm/dL (13.0-17.5); Lymphocytes # (A) 1.4 k/uL (1.0-4.8); Lymphocytes % (A) 29 %; MCH 32.1 pg (25.0-35.0); MCHC 34.1 g/dL (31.0-37.0); MCV 94.2 fL (80.0-100.0); Mean Platelet Volume 7.8; Monocytes # (A) 0.4 k/uL (0-1.0); Monocytes % (A) 8 %; Neutrophils # (A) 2.8 k/uL (1.3-7.7); Neutrophils % (A) 59 %; Platelet Count 181 k/uL (150-450); RBC 4.75 m/uL (4.30-5.90); RDW 12.3 % (11.5-15.5); WBC 4.7 k/uL (3.8-10.6)
[2024-06-06 15:25] LABS: Large Platelets Present
== END | disposition home or self-care (01) ==
LOC: LABWHC1 14:08
PROVIDERS: ATTEND Internal Medicine
DX: E83.119 Hemochromatosis, unspecified (principal)
CPT/HCPCS: 36415; 85025

== ENCOUNTER → 2024-06-26 | Outpatient (CLI) | payer OTHER | END | disposition home or self-care (01) | LOC: LABWHC1 16:01 | PROVIDERS: ATTEND Internal Medicine | DX: E83.110 Hereditary hemochromatosis (principal) | CPT/HCPCS: 36415; 81256 ==

== ENCOUNTER → 2024-08-23 | Outpatient (CLI) | payer OTHER ==
[2024-08-24 01:49] LABS: Basophils # (A) 0.03 X 10*3/uL (0.00-0.10); Basophils % (A) 0.8 %; Eosinophils # (A) 0.04 X 10*3/uL (0.04-0.35); HCT 42.9 % (39.6-50.0); HGB 14.7 g/dL (13.0-17.0); Lymphocytes # (A) 1.19 X 10*3/uL (0.90-5.00); Lymphocytes % (A) 30.3 %; MCHC 34.3 g/dL (32.0-37.0); MCV 96.4 FL (80.0-97.0); Mean Platelet Volume 11.1 FL (9.5-12.2); Monocytes % (A) 10.2 %; NRBC Per 100 WBC 0 X 10*3/uL (0.00-0.01); Neutrophils # (A) 2.26 X 10*3/uL (1.80-7.70); Neutrophils % (A) 57.4 %; Platelet Count 150 X 10*3/uL (140-440); RBC 4.45 X 10*6/uL (4.40-5.60); RDW 11.4 % (11.5-14.5); WBC 3.93 X 10*3/uL (4.50-10.00)
[2024-08-24 02:57] LABS: % Iron Saturation 34.1 (15.00-50.00)
== END | disposition home or self-care (01) ==
LOC: LABWHC1 15:18
PROVIDERS: ATTEND Internal Medicine
DX: E55.9 Vitamin D deficiency, unspecified (principal)
CPT/HCPCS: 36415; 82306; 82728; 83540; 83550; 85025